=== PATIENT | female | born 1980 | race Hispanic/Latino ===

== ENCOUNTER 2019-04-24 22:41 | Emergency (ER) | payer OTHER ==
[2019-04-24 23:18] LABS: Hematocrit 41.2 % (30.3-42.9); Hemoglobin 13.6 gm/dl (10.1-14.3); Mean Corpuscular HGB Conc 33 % (30-34); Mean Corpuscular Volume 97 fl (79-97); Platelet Count 365 K/mm3 (140-440); Red Blood Count 4.26 M/mm3 (3.65-5.03)
[2019-04-24 23:33] LABS: BUN/Creatinine Ratio 20; Blood Urea Nitrogen 10 mg/dL (7-17); Calcium 9.1 mg/dL (8.4-10.2); Hemolysis Index 25
[2019-04-25] MEDS ORDERED: MORPHINE IV ONE ×2 (01:11→04:17)
[2019-04-25] MEDS ORDERED: NACL 0.9% 1000 ML 1,000 ML IV ONE (01:11)
[2019-04-25] MEDS ORDERED: ZOFRAN IV ONE (01:12)
[2019-04-25] MEDS ORDERED: DECADRON IV ONE (01:12)
[2019-04-25] MEDS ORDERED: IMITREX SUB-Q ONE (01:13)
--- NOTE | 2019-04-25 01:25 | Cat Scan Report ---
CT HEAD WITHOUT CONTRAST INDICATION: HEADACHE for 3 weeks TECHNIQUE: All CT scans at this location are performed using CT dose reduction for ALARA by means of automated exposure control. COMPARISON: None available. FINDINGS: BRAIN: No hemorrhage or mass effect are seen. No evidence of acute infarction is noted. ORBITS: Normal as visualized. SOFT TISSUES OF HEAD: Normal. CALVARIUM: Normal. VISUALIZED PARANASAL SINUSES AND MASTOID AIR CELLS: Clear. ADDITIONAL FINDINGS: None. IMPRESSION: No acute intracranial abnormality. Signer Name: Roger Golden MD Signed: 04/25/2019 1:21 AM Workstation Name: [id number]
[2019-04-25 02:13] LABS: Amorphous Crystals,Urine Few; Bacteria,Urine 1+ /HPF (Negative); Bilirubin,Urine NEG (Negative); Blood,Urine MOD (Negative); Color,Urine Yellow (Yellow); Mucus,Urine FEW /HPF; Protein,Urine <15 mg/dL mg/dL (Negative); Urobilinogen,Urine < 2.0 mg/dL (<2.0)
[2019-04-25 02:18] LABS: HCG Qualitative,Urine Negative (Negative)
[2019-04-25] MEDS ORDERED: IBUPROFEN PO ONE (04:17)
[2019-04-25 04:50] VITALS: BP 139/87
--- NOTE | 2019-04-25 06:03 | Emergency Department Report ---
ED Headache HPI - General Chief Complaint: Headache Stated Complaint: MIGRAINE Time Seen by Provider: 04/25/19 01:06 Source: patient Exam Limitations: no limitations - History of Present Illness Initial Comments: Mrs. Friend is a 38-year-old female with history of migraine headaches, rheumatoid arthritis who presents with headache and abnormal vaginal bleeding. For the past 3 weekss he has had intermittent frontal headache typical of previous migraines. She has photophobia and nausea. She also has had constant vaginal bleeding for the past 3 weeks. No previous history of dysfunctional or abnormal vaginal bleeding. She was recently seen at urgent care for same symptoms. She was prescribed nifedipine to address hypertension. She also was prescribed Imitrex and control pills. She comes to emergency department for definitive relief of headache. She is concerned for aneurysm. Both her mother and grandfather had complications due to ruptured intracranial aneurysms. She has had imaging of her head on previous occasions. She has not had persistent migraines since her 20s. She was told at that time that her headaches were hormonal. She has used Imitrex on previous occasion. Timing/Duration: waxing and waning (3 weeks) Quality: severe Head Injury Location: frontal Recent Head Trauma: frequent headaches Modifying Factors: improves with: exposure to light Associated Symptoms: other (nausea) Allergies/Adverse Reactions: Allergies Sulfa (Sulfonamide Antibiotics) Allergy (Verified 04/24/19 23:01) Unknown Home Medications: Ambulatory Orders Promethazine [Phenergan] 25 mg PO Q6HR PRN #10 tab 04/25/19 ED Review of Systems ROS: Stated complaint: MIGRAINE Other details as noted in HPI Comment: All other systems reviewed and negative Constitutional: denies: fever, malaise Respiratory: denies: cough Cardiovascular: denies: chest pain Genitourinary: abnormal menses Neurological: headache ED Past Medical Hx - Past Medical History Previous Medical History?: Yes Hx Hypertension: Yes Hx Headaches / Migraines: Yes - Surgical History Past Surgical History?: No - Family History Family history: other (grandmother and grandfather both had history of ruptured aneurysms) - Social History Smoking Status: Never Smoker Substance Use Type: None - Medications Home Medications: Home Medications Medication Instructions Recorded Confirmed Last Taken Type Promethazine [Phenergan] 25 mg PO Q6HR PRN #10 tab 04/25/19 Unknown Rx ED Physical Exam - General Limitations: No Limitations General appearance: alert, in no apparent distress - Head Head exam: Present: atraumatic, normocephalic - Eye Eye exam: Present: normal appearance - ENT ENT exam: Present: mucous membranes moist - Neck Neck exam: Present: normal inspection, full ROM - Respiratory Respiratory exam: Present: normal lung sounds bilaterally. Absent: respiratory distress, wheezes, rales, rhonchi - Cardiovascular Cardiovascular Exam: Present: regular rate, normal rhythm, normal heart sounds. Absent: systolic murmur, diastolic murmur, rubs, gallop - GI/Abdominal GI/Abdominal exam: Present: soft, normal bowel sounds. Absent: distended, tenderness, guarding - Extremities Exam Extremities exam: Present: normal inspection - Back Exam Back exam: Present: normal inspection - Neurological Exam Neurological exam: Present: alert, oriented X3, normal gait - Psychiatric Psychiatric exam: Present: normal affect, normal mood - Skin Skin exam: Present: warm, dry, intact, normal color. Absent: rash ED Course Vital Signs 04/24/19 04/25/19 04/25/19 22:51 01:45 02:00 Temperature 98.3 F Pulse Rate 102 H 91 H 88 Respiratory 16 20 20 Rate Blood Pressure 149/101 155/90 151/101 O2 Sat by Pulse 97 97 100 Oximetry 04/25/19 04/25/19 04/25/19 03:37 04:16 04:31 Temperature Pulse Rate 82 77 79 Respiratory 17 19 12 Rate Blood Pressure 151/101 139/87 151/101 O2 Sat by Pulse 98 98 97 Oximetry 04/25/19 04/25/19 04:45 05:55 Temperature 98 F Pulse Rate 79 Respiratory 14 Rate Blood Pressure 139/87 O2 Sat by Pulse 98 Oximetry ED Medical Decision Making - Lab Data Result diagrams: 04/24/19 22:58 04/24/19 22:58 Laboratory Results - last 24 hr 04/24/19 04/24/19 04/25/19 22:58 22:58 01:24 WBC 9.4 RBC 4.26 Hgb 13.6 Hct 41.2 MCV 97 MCH 32 MCHC 33 RDW 15.0 Plt Count 365 Sodium 136 L Potassium 4.0 Chloride 96.4 L Carbon Dioxide 26 Anion Gap 18 BUN 10 Creatinine 0.5 L Estimated GFR > 60 BUN/Creatinine Ratio 20 Glucose 130 H Calcium 9.1 Urine Color Yellow Urine Turbidity Cloudy Urine pH 8.0 H Ur Specific Earp 1.014 Urine Protein <15 mg/dl Urine Glucose (UA) Neg Urine Ketones Neg Urine Blood Mod Urine Nitrite Neg Urine Bilirubin Neg Urine Urobilinogen < 2.0 Ur Leukocyte Esterase Neg Urine WBC (Auto) 6.0 Urine RBC (Auto) 53.0 U Epithel Cells (Auto) 1.0 Urine Bacteria (Auto) 1+ Amorphous Crystals Few Urine Mucus Few Urine HCG, Qual Negative - Radiology Data Radiology results: report reviewed CT head without acute process - Medical Decision Making Mrs. Friend presents with a waxing and waning headache for the past 3 weeks. I suspect recurrence of migraine headache. I do not suspect dangerous headache such as intracranial hemorrhage, meningitis, pseudotumor cerebri Mrs. Friend wants to ensure that she is not at risk for aneurysm. I provided extensive verbal education. I have referred her to neurologist. I also encouraged her to inform her PCP of these headaches. Headache improved with multiple medications provided in the emergency department. Dysfunctional uterine bleeding: She is currently now taking oral contraceptives. Encourage her to follow up with her primary care physician. She has not seen her PCP in over a year's time. Urine Test is negative. CBC within normal limits without anemia. Chemistry urinalysis are within normal limits with exception of a contaminated urine sample. Critical care attestation.: If time is entered above; I have spent that time in minutes in the direct care of this critically ill patient, excluding procedure time. ED Disposition Clinical Impression: Migraine headache, DUB (dysfunctional uterine bleeding) Disposition: DC-01 TO HOME OR SELFCARE Is pt being admited?: No Does the pt Need Aspirin: No Condition: Stable Instructions: Dysfunctional Uterine Bleeding (ED), Migraine Headache (ED) Prescriptions: Promethazine [Phenergan] 25 mg PO Q6HR PRN #10 tab PRN Reason: Nausea Referrals: GUTIERREZ LEOS MD [Staff Physician] - 3-5 Days RODY SANDHU MD [Primary Care Provider] - 3-5 Days Forms: Work/School Release Form(ED)
== END 2019-04-25 05:55 | disposition home or self-care (01) ==
LOC: ED 22:41
DX: G43.909 Migraine, unspecified, not intractable, without status migrainosus (principal); N93.8 Other specified abnormal uterine and vaginal bleeding; I10 Essential (primary) hypertension; R11.2 Nausea with vomiting, unspecified; M06.9 Rheumatoid arthritis, unspecified; Z79.899 Other long term (current) drug therapy; Z88.2 Allergy status to sulfonamides
CPT/HCPCS: 36415; 70450; 80048; 81001; 81025; 85027; 96361; 96372; 96374; 96375; 96376; 99284; J1100; J2270; J2405; J7030; J3030